=== PATIENT | female | born 1995 | race Caucasian/White ===

== ENCOUNTER 2017-08-05 16:58 | Emergency (ER) | payer OTHER ==
[2017-08-05 17:08] VITALS: BP 122/69
--- NOTE | 2017-08-05 17:19 | UC ---
Respiratory Complaint HPI - HPI Summary HPI Summary: 22 y/o female presents to the urgent care c/o dry cough for the past 2 days. She also states mild sore throat and B/L ear pressure. Pain is 2/10. Pt has been taking Mucinex, and Delsym to alleviate cough. Pt denies fever, SOB, chest pain, N/V/D, abdominal pain. - History of Current Complaint Chief Complaint: UCRespiratory Stated Complaint: COUGH Time Seen by Provider: 08/05/17 17:10 Hx Obtained From: Patient Hx Last Menstrual Period: 07/29/17 ?: No Onset/Duration: Gradual Onset, Lasting Days - 2 days Timing: Constant Severity Initially: Mild Severity Currently: Mild Pain Intensity: 2 Pain Scale Used: 0-10 Numeric Character: Cough: Nonproductive Aggravating Factors: Other - cough Associated Signs And Symptoms: Positive: Negative. Negative: Dyspnea, Fever, Chills, Wheezing - Risk Factors Pulmonary Embolism Risk Factors: Negative Cardiac Risk Factors: Negative Tuberculosis Risk Factors: Negative - Allergies/Home Medications Allergies/Adverse Reactions: Allergies Allergy/AdvReac Type Severity Reaction Status Date / Time Sulfa Drugs Allergy Hives Verified 08/05/17 17:08 Home Medications: Home Medications Dextromethorphan Polistirex [Delsym Cough Childrens] 30 mg PO DAILY 08/05/17 [ History Confirmed 08/05/17] PMH/Surg Hx/FS Hx/Imm Hx Previously Healthy: Yes - Pt denies PMHX - Surgical History Surgical History: Yes Surgery Procedure, Year, and Place: t/a ~1999. ear tubes 1997 - Family History Known Family History: Positive: None - Pt dneis FMHX - Social History Alcohol Use: Occasionally Substance Use Type: None Smoking Status (MU): Never Smoked Tobacco - Immunization History Most Recent Tetanus Shot: utd Review of Systems Constitutional: Negative Skin: Negative Eyes: Negative ENT: Sore Throat, Ear Ache - B/L ear pressure Respiratory: Cough - dry Cardiovascular: Negative Gastrointestinal: Negative Genitourinary: Negative Motor: Negative Neurovascular: Negative Musculoskeletal: Negative Neurological: Negative Psychological: Negative Is Patient Immunocompromised?: No All Other Systems Reviewed And Are Negative: Yes Physical Exam Triage Information Reviewed: Yes Vital Signs: Initial Vital Signs Temp 98.6 F 08/05/17 17:04 Pulse 77 08/05/17 17:04 Resp 17 08/05/17 17:04 BP 122/69 08/05/17 17:04 Pulse Ox 100 08/05/17 17:04 - Additional Comments VITAL SIGNS: Reviewed. GENERAL: Patient is a well developed and nourished female who is sitting comfortable in the examining table. Patient is not in any acute respiratory distress. HEAD AND FACE: No signs of trauma. No ecchymosis, hematomas or skull depressions. No sinus tenderness. EYES: PERRLA, EOMI x 2, No injected conjunctiva, no nystagmus. No photophobia. EARS: Hearing grossly intact. Ear canals and tympanic membranes are within normal limits. MOUTH: Positive pharynx with erythema, no exudates,positive palatal petechiae. No B/L tonsil enlargement, no exudate Uvula in midline. NECK: Supple, trachea is midline, Positive anterior cervical lymphadenopathy, no JVD, no carotid bruit, no c-spine tenderness, neck with full ROM. CHEST: Symmetric, no tenderness at palpation LUNGS: Clear to auscultation bilaterally. No wheezing or crackles. CVS: Regular rate and rhythm, S1 and S2 present, no murmurs or gallops appreciated. ABDOMEN: Soft, non-tender. No signs of distention. No rebound no guarding, and no masses palpated. Bowel sounds are normal. EXTREMITIES: FROM in all major joints, no edema, no cyanosis or clubbing. NEURO: Alert and oriented x 3. No acute neurological deficits. Speech is normal and follows commands. SKIN: Dry and warm UC Diagnostic Evaluation - Laboratory O2 Sat by Pulse Oximetry: 100 Respiratory Course/Dx - Course Course Of Treatment: 22 y/o female presents to the urgent care c/o dry cough for the past 2 days. She also states mild sore throat and B/L ear pressure. Pain is 2/10. Pt has been taking Mucinex, and Delsym to alleviate cough. Pt denies fever, SOB, chest pain, N/V/D, abdominal pain.Hx obtained. Pt with pharyngitis on examination. Rapid strep ordered, result: negative. Viral pharyngitis.Pt Rx ibuprofen PO and Tessalon PO to alleviates symptoms of pain, swelling and cough. Advised on hand washing to avoid spreading. Pt advised to rest, eat well and avoid strenuous exercise. If symptoms do not improve or worsen advised to return to the urgent care or f/u with her PCP for further evaluation and treatment. Pt understood and agreed - Differential Dx/Diagnosis Differential Diagnosis/HQI/PQRI: Bronchitis, Influenza, Laryngitis, Lower Resp Infection, Sinusitis, Other - pharyngtis, laryngitis Provider Diagnoses: 1- Viral pharyngitis. 2- Cough Discharge - Discharge Plan Condition: Stable Disposition: HOME Prescriptions: Benzonatate CAP* [Tessalon 100 MG CAP*] 100 mg PO TID PRN #15 cap PRN Reason: Cough Ibuprofen TAB* [Motrin TAB* 600 MG] 600 mg PO Q6H PRN #20 tab PRN Reason: Sore Throat Patient Education Materials: Pharyngitis (ED) Referrals: Billy Villanueva MD [Primary Care Provider] - If Needed Additional Instructions: 1-Please take ibuprofen PO q6-8hrs prn as instructed after meals to alleviate pain and swelling. Increase fluid intake, eat well, rest and avoid strenuous exercise 2- Take Tessalon P tabs PO to alleviate cough. 3-If symptoms do not improve or worsen please return to the urgent care or f/u with your PCP for further evaluation and treatment.
== END 2017-08-05 17:40 | disposition home or self-care (01) ==
LOC: UCCORT 16:58
DX: J02.9 Acute pharyngitis, unspecified (principal); R05 Cough
CPT/HCPCS: 87651; 99212; G0463

== ENCOUNTER 2017-11-01 16:58 | Emergency (ER) | payer OTHER ==
[2017-11-01] MEDS ORDERED: Ibuprofen TAB* 600 MG PO ONE (18:59)
[2017-11-01 19:01] VITALS: BP 139/81
--- NOTE | 2017-11-01 19:26 | UC ---
FLU HPI - HPI Summary HPI Summary: PT presents with 18 hours body aches, Ot with fevers today intermittently pt took 500mg Tylenol 6pm. + sore throat no ear pain, + pressure + cough - improved with robitussin no n/v/d no rash + po, little No flu vaccine + sick contact lmp 10/14/2017 Pt's medication reviewed this visit - History of Current Complaint Chief Complaint: UCRespiratory Stated Complaint: FEVER/CONGESTION/ACHES Time Seen by Provider: 11/01/17 19:24 Hx Obtained From: Patient Hx Last Menstrual Period: 10/14/17 ?: No Onset/Duration: Gradual Onset Severity Currently: Moderate Severity Initially: Moderate Pain Intensity: 6 Pain Scale Used: 0-10 Numeric Associated Signs & Symptoms: Positive: Fever, Myalgia, Cough, Nasal Congestion Related Hx: Possible Flu/Infectious Exposure - Allergy/Home Medications Allergies/Adverse Reactions: Allergies Allergy/AdvReac Type Severity Reaction Status Date / Time Sulfa (Sulfonamide Allergy Hives Verified 11/01/17 19:01 Antibiotics) Home Medications: Home Medications Acetaminophen [Tylenol Extra Strength] 500 mg PO 11/01/17 [History] GuaiFENesin DM* [Robitussin DM*] 5 ml PO Q6H PRN 11/01/17 [History Confirmed ] PMH/Surg Hx/FS Hx/Imm Hx Previously Healthy: Yes - Surgical History Surgical History: Yes Surgery Procedure, Year, and Place: t/a ~1999. ear tubes 1997 - Family History Known Family History: Positive: None - Pt dneis FMHX - Social History Occupation: Employed Full-time Lives: With Family Alcohol Use: Occasionally Substance Use Type: None Smoking Status (MU): Never Smoked Tobacco - Immunization History Most Recent Tetanus Shot: utd Review of Systems Constitutional: Fever, Fatigue ENT: Sore Throat, Sinus Congestion Respiratory: Cough Cardiovascular: Negative Gastrointestinal: Negative Genitourinary: Negative Musculoskeletal: Arthralgia, Myalgia All Other Systems Reviewed And Are Negative: Yes Physical Exam Triage Information Reviewed: Yes Appearance: Well-Appearing, No Pain Distress Vital Signs: Initial Vital Signs Temp 102.0 F 11/01/17 18:58 Pulse 115 11/01/17 18:58 Resp 18 11/01/17 18:58 BP 139/81 11/01/17 18:58 Pulse Ox 100 11/01/17 18:58 Vital Signs Reviewed: Yes Eye Exam: Normal Eyes: Positive: Conjunctiva Clear ENT: Positive: Pharynx normal, Nasal congestion Dental Exam: Normal Neck exam: Normal Neck: Positive: Supple, Nontender, No Lymphadenopathy Respiratory Exam: Normal Respiratory: Positive: Chest non-tender, Lungs clear, Normal breath sounds, No respiratory distress, No accessory muscle use Cardiovascular Exam: Normal Cardiovascular: Positive: RRR, No Murmur Abdominal Exam: Normal Abdomen Description: Positive: Nontender, No Organomegaly, Soft Bowel Sounds: Positive: Present Musculoskeletal Exam: Normal Musculoskeletal: Positive: Strength Intact Neurological Exam: Normal Neurological: Positive: Alert Psychological Exam: Normal Skin Exam: Normal Flu Course/Dx - Course Course Of Treatment: pt with body aches and fever x 18 hours. + influenza. hydrate. tamiflu. motrin/apap. secretion precaution. work note. return precautions - Differential Dx/Diagnosis Provider Diagnoses: influenza Discharge - Discharge Plan Condition: Stable Disposition: HOME Prescriptions: Oseltamivir Phosphate [Tamiflu] 75 mg PO DAILY #10 capsule Patient Education Materials: Influenza (ED) Forms: *Work Release Referrals: No Primary Care Phys,NOPCP [Primary Care Provider] - Additional Instructions: - Stay well hydrated. Drink plenty of non-alcoholic, non-caffinated beverages. - Alternate ibuprofen (Advil, Motrin) 600mg and Tylenol every 3 hours for pain or fever. Take with food. Do NOT take for more than 4-5 days. -cold foods (popsicle, jello, apple sauce) may be soothing to your throat - okay to gargle and spit with warm salt water, 2-3 times a day - These infections are spread by secretions - do NOT share eating or drinking utensils - clean items you share with other people such as cell phones, computer mouse, TV remote, computer tablets, etc. After you have taken Tamiflu for 3 days, change your toothbrush and your pillowcase. - get plenty of restful sleep - humidify the air in the room where you sleep - boil water, run a hot steam shower, vaporizer, cups of water by heat register - okay to take over the counter decongestant and cough medication - contact your doctor, return here, or go to the emergency department with questions or concerns
== END 2017-11-01 19:38 | disposition home or self-care (01) ==
LOC: UCCORT 16:58
DX: J10.1 Influenza due to other identified influenza virus with other respiratory manifestations (principal)
CPT/HCPCS: 87502; 99212; A9270-GY; G0463

== ENCOUNTER 2018-09-30 03:03 | Inpatient (IN) | payer OTHER ==
[2018-09-30] MEDS ORDERED: Lactated Ringers 1000 ML Bag* 1,000 ML IV ONE ×2 (05:30→08:35)
[2018-09-30] MEDS ORDERED: Buffered Lidocaine 1% SYRIN* 1 ML/SYRINGE INTRADERM ONE (05:30)
--- NOTE | 2018-09-30 05:41 | HP ---
General Information - Reason for Visit Contractions began last night approx 2300, getting stronger. Now approx Q5-6, lasting up to a minute, getting stronger. - General Information Maternal Age: 23 Grav: 1 Para: 0 SAB: 0 IEA: 0 Estimated Due Date: 10/06/18 Maternal Blood Type and Rh: B Positive - Results this Serology/RPR Result: Non-Reactive Rubella Result: Immune HBsAg Result: Negative HIV Result: Negative GBS Culture Result: Negative Past Medical History Delivery History: See Records Delivery History Comment: No previous pregnancies Pertinent Past Medical History: See Records Past Medical History Comment: Anxiety Pertinent Past Surgical History: See Records Past Surgical History Comment: Tonsillectomy w adenoidectomy Tympanostomy tubes Pertinent Family History: See Records Family History Comment: Mother with hysterectomy, mastectomy scoliosis Ovarian CA Brain tumor - Antepartal Records Antepartal Records: Reviewed, Complicated by: - anxiety Review of Systems Constitutional: Uncomfortable CV Complaint: No Respiratory: Shortness of Breath: No Gastrointestinal: Normal Bowel Movement, Nausea Genitourinary: No Dysuria, No Bleeding, No Leaking Fluid Musculoskeletal: Contractions Neurological: No Headache, No Visual Changes Movement: Normal Exam Allergies/Adverse Reactions: Allergies Sulfa (Sulfonamide Antibiotics) Allergy (Intermediate, Verified 09/26/18 13:44) Hives Vital Signs 09/30/18 05:09 Temperature 97.8 F Pulse Rate 80 Respiratory 18 Rate Blood Pressure 133/82 (mmHg) O2 Sat by Pulse 100 Oximetry - Measurements Height: 5 ft 5 in Weight: 187 lb Weight in lbs: 187.527630 Body Mass Index (BMI): 31.1 Pre- Weight: 161 lb Weight Gained This : 26 lbs and 0 ozs - Exam Breast: Breast Exam Deferred CVA: No CVA Tenderness Extremities: No Edema Heart: Normal Rhythm/Heart Sounds HEENT: No Significant Findings Lungs: Clear Bilaterally Rectal: Rectal Exam Deferred Reflexes: - - Not elicited, no clonus Thyroid: - - WNL at entry to [facility] - Abdominal Exam Abdomen Exam: Non-Tender, Fundal Height Consistent with Dates Targeted Exam Findings See L&D Outpatient Visit Provider Note for Findings: Yes - Previous Estimated Weight: 7.5lb Cervical Exam: 3cm, 4cm Effacement: 100% Station: 0 Presenting Part: Vertex Membrane Status: Intact EFM Findings - External Monitor Findings Baseline Heart Rate: 130 External Monitor Findings: Accelerations Present, No Pattern of Variable or Late Decelerations, Variability Moderate Contractions: Regular, Moderate, 45-90 Seconds Contraction Frequency: Q 5-6 Assessment/Plan - Assessment IUP @ 39+1 weeks gestation in early labor. IBOW. No evidence metabolic acidemia. - Plan Plan: Admit - Anticipate Vaginal Delivery Plan Comment: Admit to L&D. Encourage hydration, movement vs rest. Patient may desire pain medication but coping well at this time. Anticipate SVB. - Date/Time of Admission Date of Admission: 09/30/18 Time of Admission: 04:48
[2018-09-30] MEDS ORDERED: Lactated Ringers 1000 ML Bag* 1,000 ML IV SCH ×3 (06:00→21:00)
--- NOTE | 2018-09-30 06:35 | PN ---
Progress Note - Progress Note Date of Service: 09/30/18 Note: S: Patient reports ctx getting stronger, a little closer together. Would like pain medication O: VE deferred A: IUP in labor No evidence acidemia P: PARQ discussion med options, patient would like to try nitrous oxide but open to epidural if inadequate relief. Will initiate order and also start IV, fluids in preparation for epidural if desired.
[2018-09-30 07:26] LABS: ABS Basophils 0 10^3/ul (0-0.2); ABS Eosinophils 0.1 10^3/ul (0-0.6); ABS Lymphocytes 2.6 10^3/ul (1.0-4.8); ABS Neutrophils 12.4 10^3/ul (1.5-7.7); ABS Nucleated RBC 0 10^3/ul; Eosinophil % 0.6 %; Hematocrit 38 % (35-47); Hemoglobin 12.6 g/dl (12.0-16.0); Lymphocyte % 16.1 %; Mean Corpuscular HGB Conc 33 g/dl (31-36); Mean Corpuscular Hemoglobin 27 pg (27-31); Mean Corpuscular Volume 83 fL (80-97); Mean Platelet Volume 9.1 fL (7.4-10.4); Nucleated Red Blood Cells % 0; Platelet Count 240 10^3/ul (150-450); Red Blood Count 4.61 10^6/ul (4.00-5.40); Red Cell Distribution Width 14 % (10.5-15); White Blood Count 16.1 10^3/ul (3.5-10.8)
[2018-09-30] MEDS ORDERED: OBEPIDURAL* 250 ML EPIDURAL ONE (08:01)
[2018-09-30] MEDS ORDERED: Phenylephrine IV* 40 MCG/ML 10 ML SYRINGE IV PUSH PRN ×2 (08:35)
[2018-09-30] MEDS ORDERED: Sodium Citrate/Citric Acid* 15 ML UDC PO PRN (08:35)
[2018-09-30] MEDS ORDERED: EPHEDrine (Pressors)* 50 MG/ML VIAL IV PUSH PRN ×2 (08:35)
[2018-09-30] MEDS ORDERED: Famotidine TAB* 20 MG PO PRN (08:35)
[2018-09-30] MEDS ORDERED: OBEPIDURAL* 250 ML EPIDURAL SCH (09:00)
--- NOTE | 2018-09-30 09:45 | PN ---
Progress Note - Progress Note Date of Service: 09/30/18 SOAP: Subjective: Pt very comfortable with epidural. Objective: Cervix: 5cm/ 80%/ 0 station FHR Cat I- 130 baseline, + accels, no decels, moderate variability UCs Q 3-5 minutes Shultz draining clear yellow urine membranes intact Assessment: 23 year old at 39 1/7 weeks gestation in active labor, no evidence of acidemia, GBS negative with intact membranes, comfortable with epidural Plan: Will continue expectant management at this time. If ctx space out further will consider Pitocin augmentation. Anticipate .
--- NOTE | 2018-09-30 11:20 | PN ---
Progress Note - Progress Note Date of Service: 09/30/18 SOAP: Subjective: Pt reports feeling a little more with ctx but still comfortable. Requests cervical exam. Objective: Cervix: unchanged from previous Ctx: Q 3-5 minutes FHR: Baseline 130, moderate variability, + accels, isolated variable decel Membranes intact Assessment: Pt exam unchanged over two hours. FHR without evidence of acidemia. Plan: Initiate Pitocin augmentation low dose, 2 mu/min.
[2018-09-30] MEDS ORDERED: Oxytocin in LR* 20 UNITS/1,000 ML BAG IVPB ONE (11:30)
[2018-09-30] MEDS ORDERED: Oxytocin in LR* 20 UNITS/1,000 ML BAG IVPB SCH ×2 (12:00→21:00)
--- NOTE | 2018-09-30 13:28 | PN ---
Progress Note - Progress Note Date of Service: 09/30/18 SOAP: Subjective: Pt called to report vaginal bleeding. She also reports that she is feeling some rectal pressure and a bit of increased discomfort, using bolus button and still largely comfortable. Objective: Cervix: 8cm/ 100%/ +1 with a bulging bag of munoz, moderate amount bloody show FHR: 135, moderate variability, no accels, no decels UCs: 3 minutes Pitocin at 6mu/min Assessment: 23 year old at 39 1/7 weeks gestation in active labor, making excellent progress in dilation, no evidence of acidemia Plan: Continue Pitocin, will reduce by 1/2 when ROM. Consider ROM. Anticipate .
--- NOTE | 2018-09-30 14:35 | PN ---
Progress Note - Progress Note Date of Service: 09/30/18 SOAP: Subjective: Pt reports increased pressure, feels like she needs to have a bowel movement. Denies urge to push. Objective: Cervical exam: anterior lip, bulging bag, AROM performed to clear fluid FHR: 135 moderate variability, early decels, no accels UCs2-3 minutes Pitocin off Assessment: Pt progressing very well, nearly ready to push, no evidence of acidemia Plan: When pt feels increased pressure or urge to push will recheck dilation and initiate pushing. Anticipate .
--- NOTE | 2018-09-30 17:13 | PN ---
Progress Note - Progress Note Date of Service: 09/30/18 SOAP: Subjective: [] Objective: [] Assessment: [] Plan: []
--- NOTE | 2018-09-30 17:32 | PN ---
Progress Note - Progress Note Date of Service: 09/30/18 Note: Pt struggling with pushing, finding the increase in pressure extremely difficult to cope with. Pt refusing to push, crying and flailing in bed. After attempting to encourage pt to push, offered to request anesthesiologist to dose the epidural. Pt agreed. Dr. Mckeon in to see pt, bolused epidural. Pt more comfortable following epidural bolus. She agrees to try again to push after resting for a little while. FHR Cat I. Ctx Q 4-5 minutes. Plan to restart pushing shortly.
[2018-09-30] MEDS ORDERED: Dibucaine 1% 28.35 GM TUBE PR PRN (20:19)
[2018-09-30] MEDS ORDERED: Witch Hazel PAD* JAR TOPICAL PRN (20:19)
[2018-09-30] MEDS ORDERED: Glycerin ADULT SUPP PR PRN (20:19)
[2018-09-30] MEDS ORDERED: Acetaminophen TAB* 325 MG PO PRN (20:19)
[2018-09-30] MEDS: Ibuprofen TAB* 600 MG PO PRN (23:32)
[2018-09-30] MEDS: Docusate CAP* 100 MG PO SCH (23:33)
[2018-10-01 06:59] LABS: ABS Basophils 0 10^3/ul (0-0.2); ABS Eosinophils 0.2 10^3/ul (0-0.6); ABS Lymphocytes 3.6 10^3/ul (1.0-4.8); ABS Monocytes 1.5 10^3/ul (0-0.8); ABS Neutrophils 15.3 10^3/ul (1.5-7.7); ABS Nucleated RBC 0 10^3/ul; Eosinophil % 0.9 %; Hematocrit 34 % (35-47); Hemoglobin 11.1 g/dl (12.0-16.0); Lymphocyte % 17.4 %; Mean Corpuscular HGB Conc 33 g/dl (31-36); Mean Corpuscular Hemoglobin 27 pg (27-31); Mean Corpuscular Volume 83 fL (80-97); Mean Platelet Volume 8.9 fL (7.4-10.4); Nucleated Red Blood Cells % 0.1; Platelet Count 210 10^3/ul (150-450); Red Blood Count 4.11 10^6/ul (4.00-5.40); Red Cell Distribution Width 15 % (10.5-15); White Blood Count 20.6 10^3/ul (3.5-10.8)
[2018-10-01] MEDS ORDERED: Ferrous Gluconate TAB* 324 MG TAB PO SCH (09:00)
[2018-10-01] MEDS: Ibuprofen TAB* 600 MG PO PRN (09:24)
--- NOTE | 2018-10-01 10:59 | PROCNOTE ---
[facility] OB: Delivery Note - Delivery A Date of : 09/30/18 Time of : 19:38 [place] Sex: Female Weight at : 3.002 kg Score 1 Minute: 8 Score 5 Minutes: 9 Gestational Age in Weeks and Days at Delivery: 39 Weeks and 1 Days Delivery Method: Spontaneous Vaginal Labor: Spontaneous Did Patient attempt ?: N/A, No Previous Amniotic Fluid: Clear Anesthesia/Analgesia: CEI for Labor Delivered By: Cony Landin Nursery Level of Nursery: Regular/Bedside - Perineum Perineal Injury: None/Intact Perineal Repair: None - Events Delivery Events of Note: Pitocin During Labor - Additional Delivery Notes Additional Delivery Notes: Pt admitted to labor and delivery in active labor at 39 1/7 weeks gestation. She continued to progress and requested and received an epidural which provided very good pain relief. Pt continued to make steady progress throughout the day. Ctx spaced out at one time so Pitocin used to augment contractions. AROM performed at 9cm to clear fluid. Eventually pt became fully dilated and experienced increased pressure and an urge to push. Initially pushing proceeded well, but once pt began to experience sensation of increased rectal pressure she found it very difficult to push. Pt began to push ineffectively and about an hour and a half after she began pushing pt refused to push any more. Anesthesiologist called and requested to bolus epidural, which he did. After allowing pt to rest and labor down for a period of time, she agreed to try pushing again. This time, despite continuing to experience significant discomfort, pt was able to continue to push effectively, with a lot of support and encouragement. Pt eventually brought to [facility] and was coached through slow, controlled delivery of the head. Shoulders followed with the next push. placed on maternal abdomen with good tone and HR> 100. Cry weak initially but after being dried and stimulated infant began to cry vigorously. After waiting for cord pulsation to cease, cord clamped x2 and cut by 's father. Placenta soon delivered, spontaneous and larissa. Fundas firm with minimal bleeding, Pitocin increased to 250 cc/ hr. Perineum intact. Pt and stable at this time. Anticipate normal course.
[2018-10-01 14:25] LABS: Albumin 2.9 g/dL (3.2-5.2); Albumin/Globulin Ratio 1.1 (1-3); BUN/Creatinine Ratio 13.8 (8-20); Calcium 9.2 mg/dL (8.6-10.3); Globulin 2.7 g/dL (2-4); Potassium 4.1 mmol/L (3.5-5.0); Total Bilirubin 0.4 mg/dL (0.2-1.0); Total Protein 5.6 g/dL (6.4-8.9)
[2018-10-01] MEDS: Docusate CAP* 100 MG PO SCH ×2 (14:25→20:25)
[2018-10-02] MEDS: Docusate CAP* 100 MG PO SCH (08:38)
[2018-10-02 10:27] VITALS: BP 134/66
== END 2018-10-02 13:27 | disposition home or self-care (01) | DRG 560 ==
LOC: MCHOBOUT 03:03 → MCHOB 04:48
PROVIDERS: ADMIT Midwife; ATTEND Midwife
PROC: 10E0XZZ Delivery of Products of Conception, External Approach (ICD-10-PCS; principal; 2018-09-30)
PROC: 10907ZC Drainage of Amniotic Fluid, Therapeutic from Products of Conception, Via Natural or Artificial Opening (ICD-10-PCS; 2018-09-30)
DX: O99.344 Other mental disorders complicating childbirth (principal); Z37.0 Single live birth; F41.9 Anxiety disorder, unspecified; Z3A.39 39 weeks gestation of pregnancy
CPT/HCPCS: 36415; 80053; 84550; 85025; 86850; 86900; 86901; A9270-GY

== ENCOUNTER 2018-11-19 11:08 | Emergency (ER) | payer OTHER | END 2018-11-19 13:28 | disposition left against medical advice (07) | LOC: UCCORT 11:08 | DX: Z53.21 Procedure and treatment not carried out due to patient leaving prior to being seen by health care provider (principal) ==